=== PATIENT | female | born 1975 | race Caucasian/White ===

== ENCOUNTER → 2017-08-04 | Outpatient (CLI) | payer BC | LOC: FIMAGING 16:02 | PROVIDERS: ATTEND Family Medicine | DX: Z12.31 Encounter for screening mammogram for malignant neoplasm of breast (principal) ==

== ENCOUNTER 2018-01-05 05:57 | Day surgery (SDC) | payer BC ==
--- NOTE | 2017-12-16 11:58 | GHP ---
[f rep st] PREOP HISTORY AND PHYSICAL DATE OF ADMISSION: 01/05/2018 DATE OF SURGERY: 01/05/2018 at 8:15 a.m. SURGEON: Dr. Becka Anderson SURGERY TO BE PERFORMED: Hysteroscopy, dilation and curettage, polypectomy with morcellator and plac ement of a Mirena IUD. PREOPERATIVE DIAGNOSES: Menometrorrhagia and endometrial polyp. HISTORY OF PRESENT ILLNESS: The patient is a 42-year-old, 4, para 2-0-2-2, who presented for her annual exam in August complaining of increasing menstrual periods. Her periods have changed over t he last year. They are becoming increasingly heavy and shorter. She is bleeding every 24 days and b leeding for approximately 9 to 10 days of the cycle. She has a whole week of irregular bleeding and spotting and old dark discharge prior to 2 to 3 days of very heavy cycles, soaking through a super ta mpon and a pad in less than 2 hours. She has approximately 1 week where she does not bleed, every mo nth. She does not have significant cramping or any pain reported, but this is definitely a change in her cycles. We performed a pelvic ultrasound for workup of her irregular bleeding. Ultrasound reve aled an echogenic mass in the upper endometrium, which was 22 x 7 x 19 mm, had blood flow in it, and was consistent with a polyp. Overall endometrial thickness was normal and the other portion of the e ndometrium and ovaries were normal. When I reviewed this with her and reviewed treatment options, my recommendation was a hysteroscopy, D&C, and polypectomy and patient agreed. The patient has complet ed childbearing. She had a bilateral tubal ligation at the time of her section and she was considering an endometrial ablation to prevent further polyp formation and further issues and, hopefu lly, providing menorrhea. However, after she considered her options, she is concerned about endomet rial ablation and instead would like a Mirena IUD placed at the time of surgery, and I am in agreemen t. PAST MEDICAL HISTORY: 1. 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 2. 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 3. G1 . Other than that, no significant medical problems. SURGICAL HISTORY: 1. section x2. 2. D&C for missed x1. 3. ACL repair. 4. ASD repair. PAST OBSTETRICAL HISTORY: 1. In December of 2011, she had a viable female, 7 pounds 9 ounces, at 38 weeks, section f or arrest of dilation, she was induced for severe preeclampsia and did have nerve palsy at that time. 2. In November 2013, she had a spontaneous . No D&C. 3. In February of 2014, she had a missed and required a D&C. 4. In January of 2015, she had a repeat section for a viable female, without complications, and a tubal at that time. PAST GYNECOLOGICAL HISTORY: No history of significant gynecological problems or STDs and no history of abnormal Pap smears. Most recent Pap smear was in August of 2017, which was negative and negative H PV. CURRENT MEDICATIONS: Vitamin D supplement and baby aspirin, and she will discontinue these prior to surgery. ALLERGIES: No known drug allergies. SOCIAL HISTORY: She is . She lives with her and 2 daughter. 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 She denies tobacco. She has alcohol approximately once a week. No drug use. 2 to 3 cups of caffeine a day. She does not exercise regularly. No significan t other social history. FAMILY HISTORY: Both of her parents have chronic hypertension. A sister has asthma. Her father has type 2 diabetes. Her mother has basal cell cancer. Her maternal grandfather of a stroke. Her maternal grandmother has dementia. OBJECTIVE: VITAL SIGNS: Today her blood pressure is 98/64, weight 117 pounds. GENERAL: She is a w ell-developed, well-nourished white female in no acute distress. LUNGS: Clear to auscultation bilate rally. HEART: Regular rate and rhythm. No murmurs. ABDOMEN: Soft, nontender, nondistended. Normal bowel sounds. PELVIC: Normal external genitalia. Anteverted, anteflexed uterus, normal size. No palpable masses. ASSESSMENT/PLAN: A 42-year-old, 4, para 2-0-2-2, with episodes of menometrorrhagia and known endometrial polyp. The patient was consented today for a hysteroscopy, dilation and curettage, poly pectomy with morcellator, and placement of a Mirena IUD. She understood the risks and benefits of th is procedure, with the risks including bleeding, infection, damage to the uterus, damage to other org ans if perforation were to occur, or incomplete treatment of the bleeding and need for additional pro cedures at a later time. She understood these risks and benefits and agreed to proceed. /[id number]/MODL
[2018-01-05] MEDS ORDERED: LR 1,000 ML IV ONE (06:09)
[2018-01-05] MEDS ORDERED: LIDOCAINE 1% 2 ML INJ ID PRN (06:09)
[2018-01-05] MEDS ORDERED: MIDAZOLAM 2 MG/2 ML VIAL IVP ONE (08:06)
--- NOTE | 2018-01-05 08:06 | PDANEPAE ---
ANE History of Present Illness uterine polyp ANE Past Medical History - Cardiovascular History Hx Hypertension: No Hx Arrhythmias: No Hx Chest Pain: No Hx Coronary Artery / Peripheral Vascular Disease: No Hx CHF / Valvular Disease: No Hx Palpitations: No Cardiovascular History Comment: Hx of repaired ASD - Pulmonary History Hx COPD: No Hx Asthma/Reactive Airway Disease: No Hx Recent Upper Respiratory Infection: No Hx Oxygen in Use at Home: No Hx Sleep Apnea: No Sleep Apnea Screening Result - Last Documented: Negative - Neurologic History Hx Cerebrovascular Accident: No Hx Seizures: No Hx Dementia: No - Endocrine History Hx Diabetes: No - Renal History Hx Renal Disorders: No - Liver History Hx Hepatic Disorders: No - Neurological & Psychiatric Hx Hx Neurological and Psychiatric Disorders: No - Cancer History Hx Cancer: No - Congenital Disorder History Hx Congenital Disorders: No - GI History Hx Gastrointestinal Disorders: No - Other Health History Other Health History: none - Chronic Pain History Chronic Pain: No - Surgical History Prior Surgeries: 2014 ANE Review of Systems Review of Systems: - Exercise capacity Exercise capacity: >=4 METS METS (RN): 5 METS ANE Patient History - Allergies Allergies/Adverse Reactions: adhesive tape Allergy (Mild, Verified 12/06/17 10:30) Rash latex Allergy (Verified 12/06/17 10:30) Rash - Home Medications Home medications: home medication list seen and reviewed Home Medications: Aspirin EC 81 mg (*) 12/06/17 [Last Taken 12/25/17] Cholecalciferol (Vitamin D3) 12/06/17 [Last Taken 12/25/17] - NPO status NPO Status: no food or drink >8 hours NPO Since - Liquids (Date): 01/04/18 NPO Since - Liquids (Time): 22:00 NPO Since - Solids (Date): 01/04/18 NPO Since - Solids (Time): 18:30 - Anes Hx Anes Hx: no prior problems - Smoking Hx Smoking Status: Never smoked - Family Anes Hx Family Hx Anesthesia Complications: none ANE Labs/Vital Signs - Vital Signs Blood Pressure: 113/72 Heart Rate: 78 Respiratory Rate: 16 O2 Sat (%): 100 Height: 160.02 cm Weight: 53.07 kg ANE Physical Exam - Airway Neck exam: FROM Mallampati Score: Class 1 Mouth exam: normal dental/mouth exam - Pulmonary Pulmonary: no respiratory distress - Cardiovascular Cardiovascular: regular rate and rhythym - ASA Status ASA Status: II ANE Anesthesia Plan Anesthesia Plan: GA w LMA
[2018-01-05] MEDS ORDERED: fentaNYL 100 MCG/2 ML INJ ONE (08:15)
[2018-01-05] MEDS ORDERED: PROPOFOL 200 MG/20 ML VIAL ONE (08:15)
[2018-01-05] MEDS ORDERED: LIDOCAINE 2% 2 ML INJ ONE (08:16)
[2018-01-05] MEDS ORDERED: DEXAMETHASONE 4 MG/ML VIAL ONE (08:20)
[2018-01-05] MEDS ORDERED: SILVER NITRATE APPLICATOR 1 APPL TP ONE (08:23)
--- NOTE | 2018-01-05 08:49 | PDHPUP ---
History & Physical Update H&P update statement: This history and physical update is based on an assessment of the patient which was completed after admission or registration (within 24 hours), but prior to the surgery/procedure. H&P update: H&P reviewed & patient examined, no change in patient's condition since H&P completed
[2018-01-05] MEDS ORDERED: ONDANSETRON 4 MG/2 ML VIAL IVP PRN (09:13)
[2018-01-05] MEDS ORDERED: NALOXONE HCL 0.4 MG/ML INJ IVP PRN (09:13)
[2018-01-05] MEDS ORDERED: HYDROmorphONE/DILAUDID 1 MG/ML INJ IVP PRN (09:13)
[2018-01-05] MEDS ORDERED: fentaNYL 100 MCG/2 ML INJ IVP PRN (09:13)
[2018-01-05] MEDS ORDERED: HYDROCODONE/APAP 5/325 TAB PO PRN (09:31)
[2018-01-05] MEDS ORDERED: IBUPROFEN 600 MG TAB PO PRN (09:31)
--- NOTE | 2018-01-05 09:34 | POSTOPPROG ---
Post Op Note Date of Operation: 01/05/18 Surgeon: Becka Anderson Anesthesiologist: Dr Kaplan Anesthesia: LMA Pre-op Diagnosis: menomenorrhagia Post-op Diagnosis: same Procedure: Hysteroscopy dilation and curettage and insertion of Mirena IUD Findings: normal endometrium Inf/Abcess present in the surg proc area at time of surgery?: No Depth: Organ Space EBL: Minimal Total fluids administered: 800 Specimen(s): endometrial curettings
[2018-01-05] MEDS ORDERED: KETOROLAC 30 MG/1 ML SDV IVP ONE (09:41)
--- NOTE | 2018-01-05 09:41 | POSTANESTH ---
Post Anesthetic Evaluation Cardiovascular Status: Similar to Pre-Op Cond Respiratory Status: Similar to Pre-op Cond. Level of Consciousness/Mental Status: Can Participate in Eval Pain Control: Adequate, Prn Tx Ordered Nausea/Vomiting Control: Adequate, Prn Tx Ordered Complications Possibly Related to Anesthesia: None Noted
[2018-01-05] MEDS ORDERED: KETOROLAC 30 MG/1 ML SDV ONE (09:46)
--- NOTE | 2018-01-05 10:19 | GOP ---
DATE OF OPERATION: 01/05/2018 SURGEON: Becka Anderson MD PREOPERATIVE DIAGNOSIS: Menometrorrhagia and endometrial polyp. POSTOPERATIVE DIAGNOSIS: Menometrorrhagia. PROCEDURE PERFORMED: FINDINGS: SPECIMENS: The pathologic specimen will be endometrial curettings. ESTIMATED BLOOD LOSS: Less than 10 cc. INDICATIONS: The patient is a 42-year-old 4, para 2-0-2-2, who presented for her annual exam in August complaining of increasing menstrual periods. Periods have changed over the last year becomin g heavy and shorter. She is bleeding every 24 days, bleeding for approximately 9-10 days of the cycl e and has a whole week of irregular bleeding and spotting 2-3 days prior to her cycle starting. She is soaking through a super tampon and pad in less than 2 hours. She is getting to the point where courtney only has 1 week that she does not bleed every month. Does not have significant cramping or pain. Pelvic ultrasound for workup of her irregular bleeding revealed an echogenic mass in the upper endome trium which was 22 x 7 x 19 mm, had blood flow to it consistent with polyp. Overall endometrial thic kness was normal. Other portions of the endometrium and ovaries were normal. We reviewed treatment options and I recommended a hysteroscopy, D and C, and polyp. I offered her an endometrial ablation to prevent further polyp formation and give her chances of lessened periods or amenorrhea for the res t of her life. She declined this by chose to have a Mirena IUD placed for help with her periods. Monster valdez was consented for the procedure. She understood the risks and benefits the risks including bleedin g, infection, damage to the uterus including possible risk of perforation, damage to other organs if perforation was to occur, need for additional procedures and incomplete treatment of her bleeding. S he understood these risks and benefits and agreed to proceed. DESCRIPTION OF PROCEDURE: Patient was taken to the operating room where she was placed under general anesthesia without difficulty. She was prepped and draped in the dorsal lithotomy position and she had previously just drained her bladder. After a WHO time-out was performed an open-sided speculum w as placed in the vagina, and a single-tooth tenaculum was used to grasp the anterior lip of the cervi x. The uterus sounded to 8 cm. The uterus was progressively dilated with Cobb dilators to a #6.5. The TruClear hysteroscope was assembled. The fluid management system was calibrated and the hystero scope was then gently advanced from the cervix to the fundus. With careful inspection of the endomet rium the endometrial cavity was normal with both tubal ostia visualized and no polyps or abnormalitie s visualized from the cervix all the way to the endometrium with good visualization of the entire cav ity. Because there was not a definitive polyp seen I used the polyp blade morcellator to sample the cavity in a circumferential fashion anterior to posterior from the fundus to the cervix giving repres entative sections and making sure to ensure safety with the whole morcellation. Hysteroscope was the n removed. There was no bleeding visualized. The Mirena IUD was then gently advanced from the cervi x to the fundus and seated at 8 cm. The applicator was removed. The strings were trimmed to 2 cm. The tenaculum was removed and small areas of bleeding were cauterized with silver nitrate. The spec ulum was removed. The patient tolerated the procedure well. Sponge, lap, needle, and instrument cou nts were correct x2. Patient went to the recovery room in good condition. IV FLUIDS: 500 cc. Hysteroscopic fluid deficit was 30 cc. /[id number]/MODL
[2018-01-05 11:06] VITALS: BP 119/79
== END 2018-01-05 11:07 | disposition home or self-care (01) ==
LOC: FSGY 05:57
PROVIDERS: ATTEND Obstetrics & Gynecology
DX: N92.0 Excessive and frequent menstruation with regular cycle (principal); N84.0 Polyp of corpus uteri; Z87.74 Personal history of (corrected) congenital malformations of heart and circulatory system
CPT/HCPCS: 58300; 58558; C1782; J1100; J1885; J2250; J2704; J3010

== ENCOUNTER → 2018-08-31 | Outpatient (CLI) | payer BC, OTHER | LOC: FIMAGING 14:50 | PROVIDERS: ATTEND Obstetrics & Gynecology | DX: Z12.31 Encounter for screening mammogram for malignant neoplasm of breast (principal); Z80.3 Family history of malignant neoplasm of breast ==